=== PATIENT | male | born 1950 | race Caucasian/White ===

== ENCOUNTER → 2020-10-11 14:54 | Outpatient (CLI) | payer MEDICARE, OTHER, SELFPAY ==
--- NOTE | 2020-10-11 14:58 | DI.RAD.S_ITS ---
PROCEDURE: XR FOOT LT MIN 3V INDICATIONS: left toe pain, fifth digit TECHNIQUE: 3 views of the foot were acquired. COMPARISON: None. FINDINGS: Bones: There is an oblique, minimally displaced fracture at base of the 5th proximal phalanx without definite intra-articular extension. No suspicious bony lesions. 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 Mild degenerative changes are seen at the 1st metatarsophalangeal joint. Soft tissues: Soft tissue edema is seen in the lateral aspect of the forefoot. IMPRESSION: Minimally displaced fracture at the base of the 5th proximal phalanx without definite intra-articular extension. Dictated by: Jalil Bird M.D. on 10/11/2020 at 15:10 Approved by: Jalil Bird M.D. on 10/11/2020 at 15:16
== END ==
PROVIDERS: PCP Family Medicine; Referring Provider Physician Assistant; Visit Provider Physician Assistant
DX: M79.675 Pain in left toe(s) (principal)
CPT/HCPCS: 73630

== ENCOUNTER → 2022-09-13 08:50 | Outpatient (CLI) | payer MEDICARE, OTHER, SELFPAY ==
--- NOTE | 2022-09-13 | DI.MRI.S_ITS ---
PROCEDURE: MR KNEE RT WO CON INDICATIONS: RIGHT KNEE PAIN TECHNIQUE: Noncontrast sagittal PD fast spin echo and T2 fast spin echo with fat saturation, sagittal 3-D FLASH with fat saturation; coronal T1 spin echo and PD fast spin echo with fat saturation, and axial PD fast spin echo with fat saturation through the knee. COMPARISON: None. FINDINGS: Image quality: Excellent. Menisci: There is oblique tear involving posterior horn of medial meniscus extending to inferior articulating surface . Horizontal oblique tear involving posterior horn of lateral meniscus is also seen extending to superior articulating surface. The meniscal root ligaments appear intact. Cruciate ligaments: The anterior and posterior cruciate ligaments are both thickened with subtle intrasubstance T2 hyperintense signal. No cruciate ligament rupture. Medial structures: The medial collateral ligament appears thickened with intrasubstance T2 hyperintense signal and adjacent edema.. The posterior oblique ligament, semimembranosus tendon insertions, oblique popliteal ligament, and meniscocapsular junction appear intact. Visualized portions of the pes anserinus tendons appear normal. No abnormal bursal fluid. Lateral structures: The lateral collateral ligament, long and short heads of the biceps femoris tendon appear intact. The popliteus tendon appears normal; the popliteofibular ligament appears intact. Iliotibial band appears normal. Anterior structures: Nonspecific subcutaneous soft tissue edema along anterior aspect of patella and patella tendon is seen. The quadriceps and patellar tendons appear intact. Patellar alignment is normal. No femoral trochlear dysplasia or ventral trochlear prominence. No edema in the infrapatellar fat pad. 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 Marrow edema is seen in weight-bearing portion of medial femoral condyle and lateral femoral condyle as well as adjacent anterior weight-bearing portion of medial tibial plateau suggestive of osteochondral injuries in these areas. No fracture or dislocation. Joint space: There is small knee joint fluid. There is a 2.7 x 1.8 x 5.1 cm Mason's cyst. Normal appearing synovial plicae are incidentally noted. IMPRESSION: 1. Oblique tear involving posterior horn of medial meniscus extending to inferior articulating surface. Horizontal oblique tear involving posterior horn of lateral meniscus extending to superior articulating surface. 2. Sprain/low-grade intrasubstance partial-thickness tear involving ACL and PCL. No cruciate ligament rupture. 3. Low to moderate grade MCL sprain/partial-thickness tear. 4. Moderate tricompartmental osteoarthritis and chondromalacia as above. No acute fracture or dislocation. Small joint effusion and a Mason's cyst as above. No gross loose bodies. Dictated by: Eloy Blevins M.D. on 09/13/2022 at 10:08 Approved by: Eloy Blevins M.D. on 09/13/2022 at 10:11
== END ==
PROVIDERS: PCP Family Medicine; Referring Provider Orthopaedic Surgery; Visit Provider Orthopaedic Surgery
DX: M17.11 Unilateral primary osteoarthritis, right knee (principal); S83.241A Other tear of medial meniscus, current injury, right knee, initial encounter; S83.281A Other tear of lateral meniscus, current injury, right knee, initial encounter; S83.411A Sprain of medial collateral ligament of right knee, initial encounter; S83.521A Sprain of posterior cruciate ligament of right knee, initial encounter; S83.511A Sprain of anterior cruciate ligament of right knee, initial encounter; M94.261 Chondromalacia, right knee; M71.21 Synovial cyst of popliteal space [Baker], right knee; M25.461 Effusion, right knee
CPT/HCPCS: 73721

== ENCOUNTER → 2024-10-20 14:34 | Outpatient (CLI) | payer MEDICARE, OTHER, SELFPAY ==
--- NOTE | 2024-10-20 14:38 | DI.RAD.S_ITS ---
PROCEDURE: XR FOOT RT MIN 3V INDICATIONS: bilateral foot and ankle pain TECHNIQUE: 3 views of the foot were acquired. COMPARISON: [facility], CR, XR FOOT LT MIN 3V, 10/11/2020, 15:00. 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 No focal osseous abnormality seen within the foot. Mild hallux valgus and pes planus noted Joints: Solid fusion across the ankle mortise the talocalcaneal calcaneal joints noted-anatomic alignment. Two screws support fusion across the talocalcaneal joint. Soft tissues: Mild diffuse soft swelling likely indicates edema. IMPRESSION: Mild diffuse soft tissue swelling. Other chronic findings as described Dictated by: Allen Ramirez M.D. on 10/21/2024 at 9:17 Approved by: Allen Ramirez M.D. on 10/21/2024 at 9:18
--- NOTE | 2024-10-20 14:38 | DI.RAD.S_ITS ---
PROCEDURE: XR FOOT LT MIN 3V INDICATIONS: bilateral foot and ankle pain TECHNIQUE: 3 views of the foot were acquired. COMPARISON: [facility], , XR FOOT LT MIN 3V, 10/11/2020, 15:00. FINDINGS: Bones: The oblique fracture, previously seen in the proximal 5th phalanx , has solidly unified in anatomic alignment. No other osseous abnormality. Joints: Moderate 1st MTP degeneration appreciated with mild to moderate degeneration interphalangeal joints. Soft tissues: Moderate diffuse soft tissue swelling noted. IMPRESSION: Moderate diffuse soft tissue swelling likely indicating edema. Other chronic findings as described Dictated by: Allen Ramirez M.D. on 10/21/2024 at 9:20 Approved by: Allen Ramirez M.D. on 10/21/2024 at 9:22
--- NOTE | 2024-10-20 14:38 | DI.RAD.S_ITS ---
PROCEDURE: XR ANKLE LT MIN 3V INDICATIONS: bilateral foot and ankle pain TECHNIQUE: 3 views of the ankle were acquired. COMPARISON: None. FINDINGS: Bones: There are no osseous abnormalities. Tibiotalar and talocalcaneal joints: Ankle mortise is normal in width and alignment. Small effusion appreciated. Narrowing of the posterior facet of the talocalcaneal joint likely indicates degeneration. Soft tissues: Moderate diffuse soft swelling noted. IMPRESSION: Moderate diffuse soft swelling indicating edema. Small ankle effusion. Dictated by: Allen Ramirez M.D. on 10/21/2024 at 9:19 Approved by: Allen Ramirez M.D. on 10/21/2024 at 9:20
--- NOTE | 2024-10-20 14:38 | DI.RAD.S_ITS ---
PROCEDURE: XR ANKLE RT MIN 3V INDICATIONS: bilateral foot and ankle pain TECHNIQUE: 3 views of the ankle were acquired. COMPARISON: None. FINDINGS: Bones: The distal 1/3 of the fibula is surgically absent. There is moderate deformity of the distal tibia diaphysis and metaphysis compatible with a malunified old spiral fracture. Tibiotalar and talocalcaneal joints: Solid fusion across the ankle mortise noted. Two screws fuse the talocalcaneal joint which is also solid unified. Alignment of both joints is anatomic. Soft tissues: Mild diffuse soft swelling likely indicates edema. IMPRESSION: Chronic findings -as described Dictated by: Allen Ramirez M.D. on 10/21/2024 at 9:14 Approved by: Allen Ramirez M.D. on 10/21/2024 at 9:16
== END ==
PROVIDERS: PCP Family Medicine; Referring Provider Podiatrist Foot & Ankle Surgery; Visit Provider Podiatrist Foot & Ankle Surgery
DX: M79.671 Pain in right foot (principal); M79.672 Pain in left foot; M20.11 Hallux valgus (acquired), right foot; M21.41 Flat foot [pes planus] (acquired), right foot; M25.472 Effusion, left ankle; Z87.81 Personal history of (healed) traumatic fracture; Z96.698 Presence of other orthopedic joint implants
CPT/HCPCS: 73610; 73630

== ENCOUNTER → 2024-11-21 12:22 | Outpatient (CLI) | payer MEDICARE, OTHER, SELFPAY ==
--- NOTE | 2024-11-21 12:23 | DI.CT.S_ITS ---
PROCEDURE: CT LE RT WO CON INDICATIONS: ARTHRITIS OF RIGHT FOOT TECHNIQUE: Noncontrast 1-1.5 mm axial sections acquired from above the tibiotalar joint to the bottom of the calcaneus, with coronal and sagittal reformats. COMPARISON: [facility], CR, XR FOOT RT MIN 3V, 10/20/2024, 14:39. FINDINGS: Image quality: Diagnostic. Bones: Patient is status post subtalar fusion with surgical screws in place. Increased radiolucencies are noted surrounding the surgical screws concerning for hardware loosening. Near complete bony union at subtalar joint and tibiotalar joint is seen. No acute fracture or dislocation. Moderate osteoarthritic changes are noted throughout rest of the hindfoot joints. [id number] osteoarthritic changes are noted in midfoot and forefoot joints. No suspicious intraosseous lesion. No CT evidence of metatarsal stress fractures. Soft tissues: No soft tissue mass or drainable fluid collection. No full-thickness ankle tendon rupture. No abnormal soft tissue calcifications. IMPRESSION: 1. Prior subtalar fusion with suggestion of loosening of the surgical screws. 2. Near complete bony fusion at tibiotalar and subtalar joints. 3. No acute fracture or dislocation. Moderate osteoarthritic changes involving talonavicular joint and calcaneocuboid joint. [id number] osteoarthritic changes are seen in midfoot and forefoot. No suspicious bony lesions. 4. No gross right foot soft tissue abnormalities. Dictated by: Eloy Blevins M.D. on 11/21/2024 at 17:06 Approved by: Eloy Blevins M.D. on 11/21/2024 at 17:12
== END ==
LOC: CT 12:23
PROVIDERS: PCP Family Medicine; Referring Provider Orthopaedic Surgery Foot and Ankle Surgery; Visit Provider Orthopaedic Surgery Foot and Ankle Surgery
DX: M19.071 Primary osteoarthritis, right ankle and foot (principal); Z98.1 Arthrodesis status
CPT/HCPCS: 73700